=== PATIENT | female | born 1980 | race Caucasian/White ===

== ENCOUNTER 2020-09-18 07:11 | Emergency (ER) | payer BC ==
[2020-09-18] MEDS ORDERED: Aspirin 81 MG Tab.Chew PO ONE (07:46)
[2020-09-18] MEDS ORDERED: Morphine 2 MG/ML SYRINGE IVPUSH ONE (08:19)
[2020-09-18] MEDS ORDERED: Nitroglycerin 0.4 MG Tab.SL SL ONE (08:23)
[2020-09-18] MEDS ORDERED: Ondansetron 4 MG/2 ML SDV IVPUSH ONE (08:24)
--- NOTE | 2020-09-18 09:19 | CR ---
DATE OF SERVICE: 09/18/20 CLINICAL DATA: chest pain AP CHEST: The heart size is normal. The lungs are clear. No pneumothorax. No pleural effusions. No evidence of acute intrathoracic disease. [id number] [facility]
[2020-09-18] MEDS ORDERED: GI Cocktail Oral Solution 30 ML PO ONE (09:38)
[2020-09-18] MEDS ORDERED: Iopamidol 612 MG/ML 100 ML Bottle IV PRN (09:43)
[2020-09-18] MEDS ORDERED: Sodium Chloride 0.9% 50 ML SDV FLUSH SCH (09:45)
[2020-09-18] MEDS ORDERED: Nitroglycerin 2% Oint 30 GM Tube TOP ONE (09:56)
--- NOTE | 2020-09-18 11:44 | CT ---
DATE OF SERVICE: 09/18/2020 CLINICAL DATA: Chest Pain Enhanced chest CT: Multi slice acquisition through the chest with IV contrast was performed. No priors. No evidence of PE. No pneumothorax. No pleural effusions. No aortic aneurysm or dissection. There is a linear density in the right lung bases consistent with linear atelectasis or fibrosis. The lungs are otherwise clear. No areas of consolidation. The heart size is normal. No pericardial effusion. No hilar or mediastinal adenopathy. No osseous abnormalities. Impression: No acute intracranial abnormalities. MTDD
--- NOTE | 2020-09-18 13:17 | EDM.PDOC ---
ED HPI GENERAL MEDICAL PROBLEM - General Chief Complaint: Chest Pain Stated Complaint: CHEST/JAW PAIN,SOB Time Seen by Provider: 09/18/20 08:00 Source of Information: Reports: Patient History Limitations: Reports: No Limitations - History of Present Illness INITIAL COMMENTS - FREE TEXT/NARRATIVE: Patient is a 39 y/o female with PMHx of anxiety, who presents with substernal chest pain since yesterday at 0430. She describes the pain as constant, worsening, radiates to the shoulder blades and right neck. Associated shortness of breath and nausea. No cardiovascular or pulmonary disease. No family history. She took pepcid at home, which did not improve her symptoms. 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: Neurological History: Reports: Migraines Psychiatric History: Reports: Panic Attack, PTSD Endocrine/Metabolic History: Reports: Diabetes, Gestational - Past Surgical History HEENT Surgical History: Reports: Tonsillectomy Musculoskeletal Surgical History: Reports: Other (See Below) Other Musculoskeletal Surgeries/Procedures:: ankle surgery Social & Family History - Tobacco Use Second Hand Smoke Exposure: No - Recreational Drug Use Recreational Drug Use: No ED ROS GENERAL - Review of Systems Review Of Systems: See Below Constitutional: Reports: No Symptoms HEENT: Reports: No Symptoms Respiratory: Reports: Shortness of Breath Cardiovascular: Reports: Chest Pain GI/Abdominal: Reports: Nausea Musculoskeletal: Reports: No Symptoms Skin: Reports: No Symptoms Neurological: Reports: No Symptoms Psychiatric: Reports: No Symptoms ED EXAM, GENERAL - Physical Exam Exam: See Below Exam Limited By: No Limitations General Appearance: Alert, No Apparent Distress Head: Atraumatic, Normocephalic Neck: Normal Inspection, Supple, Non-Tender, Full Range of Motion, Other (no carotid bruits bilateral) Respiratory/Chest: No Respiratory Distress, Lungs Clear, Normal Breath Sounds, No Accessory Muscle Use, Chest Non-Tender Cardiovascular: Normal Peripheral Pulses, Regular Rate, Rhythm, No Edema, No Murmur, Other (cannot reproduce chest pain on exam) Peripheral Pulses: 2+: Carotid (L), Carotid (R), Radial (L), Radial (R) GI/Abdominal: Normal Bowel Sounds, Soft, Non-Tender, No Distention Extremities: Normal Inspection, Normal Range of Motion, Non-Tender, No Pedal Edema, Normal Capillary Refill Neurological: Alert, Oriented, CN II-XII Intact, Normal Cognition, Normal Gait, No Motor/Sensory Deficits Psychiatric: Normal Affect, Normal Mood Skin Exam: Warm, Dry, Intact, Normal Color, No Rash #1 Interpretation EKG Date: 09/18/20 Time: 08:35 Rhythm: NSR Rate (Beats/Min): 97 [place]: Normal P-Wave: Present QRS: Normal ST-T: Other (twave inversions in inferior leads) QT: Normal Comparison: NA - No Prior EKG Course - Vital Signs Text/Narrative:: Patient had labs and imaging, which were negative for dissection, PNA, pneumothorax, NSTEMI, or pulmonary embolism. GI cocktail given and aspirin without improvement. Nitro given with improvement. Patient with systolic of 100 (which is normal for her) and it went to 90 after nitro x 1. Nitro paste placed and patient's pain improved from 6/10 to 2/10. Discussed with cardio (dante enriquez) and Dr. Guerrero. Repeat troponin negative. Last Recorded V/S: Last Vital Signs Temp 36.6 C 09/18/20 11:19 Pulse 72 09/18/20 11:19 Resp 15 09/18/20 11:19 BP 104/67 09/18/20 11:19 Pulse Ox 98 09/18/20 11:19 - Orders/Labs/Meds Orders: Active Orders 24 hr Category Date Time Status C-REACTIVE PROTEIN [CHEM] Stat Lab 09/18/20 09:47 Results CKMB [CHEM] Stat Lab 09/18/20 09:47 Results Labs: Laboratory Tests 09/18/20 09/18/20 09/18/20 Range/Units 07:45 07:45 07:46 WBC (4.0-11.0) K/uL RBC (3.80-5.80) M/uL Hgb (11.5-16.5) g/dL Hct (37.0-47.0) % MCV (76-96) fL MCH (27.0-32.0) pg MCHC (31.0-35.0) g/dL RDW (11.0-16.0) % Plt Count (150-500) K/uL MPV (6.0-10.0) fL Neut % (Auto) (45.0-70.0) % Lymph % (Auto) (20.0-40.0) % [place] % (Auto) (3.0-10.0) % Eos % (Auto) (1.0-5.0) % Baso % (Auto) (0.0-0.5) % Neut # (Auto) (2.00-7.50) K/uL Lymph # (Auto) (1.50-4.00) K/uL [place] # (Auto) (0.20-0.80) K/uL Eos # (Auto) (0.04-0.40) K/uL Baso # (Auto) (0.02-0.10) K/uL D-Dimer, Quantitative < 100 (0-400) ng/mL Sodium 141 (136-145) mmol/L Potassium 3.6 (3.5-5.1) mmol/L Chloride 105 (98-107) mmol/L Carbon Dioxide 28.3 (21.0-32.0) mmol/L Anion Gap 11.3 (5.0-15.0) mmol/L BUN 13 (8-26) mg/dL Creatinine 0.98 (0.55-1.02) mg/dL Est Cr Clr Drug Dosing 76.43 mL/min Estimated GFR (MDRD) > 60 (>60) MLS/MIN BUN/Creatinine Ratio 13.3 (6-25) Glucose 108 H (74-100) mg/dL Calcium 8.4 L (8.5-10.1) mg/dL Total Bilirubin 1.0 (0.0-1.0) mg/dL AST 12 L (15-37) U/L ALT 22 (12-78) U/L Alkaline Phosphatase 42 L (46-116) U/L Troponin I < 0.017 (0.000-0.060) ng/mL C-Reactive Protein (0.0-3.0) mg/L Total Protein 6.8 (6.4-8.2) g/dL Albumin 3.6 (3.4-5.0) g/dL Globulin 3.2 (2.2-4.2) g/dL Albumin/Globulin Ratio 1.1 (0.8-2.0) SARS CoV-2 RNA Rapid KAMARI 09/18/20 09/18/20 09/18/20 Range/Units 08:00 08:39 09:45 WBC 4.7 (4.0-11.0) K/uL RBC 4.10 (3.80-5.80) M/uL Hgb 13.5 (11.5-16.5) g/dL Hct 39.4 (37.0-47.0) % MCV 96 (76-96) fL MCH 32.9 H (27.0-32.0) pg MCHC 34.3 (31.0-35.0) g/dL RDW 11.6 (11.0-16.0) % Plt Count 219 (150-500) K/uL MPV 9.5 (6.0-10.0) fL Neut % (Auto) 63.0 (45.0-70.0) % Lymph % (Auto) 26.9 (20.0-40.0) % [place] % (Auto) 8.8 (3.0-10.0) % Eos % (Auto) 0.9 L (1.0-5.0) % Baso % (Auto) 0.4 (0.0-0.5) % Neut # (Auto) 2.93 (2.00-7.50) K/uL Lymph # (Auto) 1.25 L (1.50-4.00) K/uL [place] # (Auto) 0.41 (0.20-0.80) K/uL Eos # (Auto) 0.04 (0.04-0.40) K/uL Baso # (Auto) 0.02 (0.02-0.10) K/uL D-Dimer, Quantitative (0-400) ng/mL Sodium (136-145) mmol/L Potassium (3.5-5.1) mmol/L Chloride (98-107) mmol/L Carbon Dioxide (21.0-32.0) mmol/L Anion Gap (5.0-15.0) mmol/L BUN (8-26) mg/dL Creatinine (0.55-1.02) mg/dL Est Cr Clr Drug Dosing mL/min Estimated GFR (MDRD) (>60) MLS/MIN BUN/Creatinine Ratio (6-25) Glucose (74-100) mg/dL Calcium (8.5-10.1) mg/dL Total Bilirubin (0.0-1.0) mg/dL AST (15-37) U/L ALT (12-78) U/L Alkaline Phosphatase (46-116) U/L Troponin I < 0.017 (0.000-0.060) ng/mL C-Reactive Protein (0.0-3.0) mg/L Total Protein (6.4-8.2) g/dL Albumin (3.4-5.0) g/dL Globulin (2.2-4.2) g/dL Albumin/Globulin Ratio (0.8-2.0) SARS CoV-2 RNA Rapid KAMARI Negative 09/18/20 Range/Units 09:47 WBC (4.0-11.0) K/uL RBC (3.80-5.80) M/uL Hgb (11.5-16.5) g/dL Hct (37.0-47.0) % MCV (76-96) fL MCH (27.0-32.0) pg MCHC (31.0-35.0) g/dL RDW (11.0-16.0) % Plt Count (150-500) K/uL MPV (6.0-10.0) fL Neut % (Auto) (45.0-70.0) % Lymph % (Auto) (20.0-40.0) % [place] % (Auto) (3.0-10.0) % Eos % (Auto) (1.0-5.0) % Baso % (Auto) (0.0-0.5) % Neut # (Auto) (2.00-7.50) K/uL Lymph # (Auto) (1.50-4.00) K/uL [place] # (Auto) (0.20-0.80) K/uL Eos # (Auto) (0.04-0.40) K/uL Baso # (Auto) (0.02-0.10) K/uL D-Dimer, Quantitative (0-400) ng/mL Sodium (136-145) mmol/L Potassium (3.5-5.1) mmol/L Chloride (98-107) mmol/L Carbon Dioxide (21.0-32.0) mmol/L Anion Gap (5.0-15.0) mmol/L BUN (8-26) mg/dL Creatinine (0.55-1.02) mg/dL Est Cr Clr Drug Dosing mL/min Estimated GFR (MDRD) (>60) MLS/MIN BUN/Creatinine Ratio (6-25) Glucose (74-100) mg/dL Calcium (8.5-10.1) mg/dL Total Bilirubin (0.0-1.0) mg/dL AST (15-37) U/L ALT (12-78) U/L Alkaline Phosphatase (46-116) U/L Troponin I (0.000-0.060) ng/mL C-Reactive Protein < 0.5 (0.0-3.0) mg/L Total Protein (6.4-8.2) g/dL Albumin (3.4-5.0) g/dL Globulin (2.2-4.2) g/dL Albumin/Globulin Ratio (0.8-2.0) SARS CoV-2 RNA Rapid KAMARI Meds: Medications Discontinued Medications Generic Name Dose Route Start Last Admin Trade Name Freq PRN Reason Stop Dose Admin Al Hydroxide/Mg Hydroxide 30 ml 09/18/20 09:38 09/18/20 09:38 Gi Cocktail PO 09/18/20 09:39 30 ml ONETIME ONE Administration Aspirin 324 mg 09/18/20 07:46 09/18/20 07:48 Aspirin PO 09/18/20 07:47 324 mg ONETIME ONE Administration Iopamidol 100 ml 09/18/20 09:43 09/18/20 11:10 Isovue-300 (61%) IV 09/19/20 09:44 100 ml . DIRECTED PRN Administration RADIOLOGY EXAM Morphine Sulfate 2 mg 09/18/20 08:19 09/18/20 08:54 Morphine IVPUSH 09/18/20 08:20 2 mg ONETIME ONE Administration Nitroglycerin 0.4 mg 09/18/20 08:23 09/18/20 08:24 Nitrostat SL 09/18/20 08:24 0.4 mg ONETIME ONE Administration Nitroglycerin 1 gm 09/18/20 09:56 09/18/20 10:03 Nitro-Bid 2% TOP 09/18/20 09:57 1 unit ONETIME ONE Administration Ondansetron HCl 4 mg 09/18/20 08:24 09/18/20 08:27 Zofran IVPUSH 09/18/20 08:25 4 mg ONETIME ONE Administration Sodium Chloride 50 ml 09/18/20 09:45 09/18/20 11:10 Normal Saline FLUSH 09/18/20 23:59 50 ml ONETIME LEBRON Administration Departure - Departure Time of Disposition: 13:00 Disposition: Home, Self-Care 01 Condition: Good Clinical Impression: Chest pain Qualifiers: Chest pain type: unspecified Qualified Code(s): R07.9 - Chest pain, unspecified Instructions: Nonspecific Chest Pain, Adult Referrals: PCP,None [Primary Care Provider] - Forms: ED Department Discharge Care Plan Goals: take 81 mg Aspirin daily. Nitro 0.4 mg by mouth up to three times , five min apart as needed for chest pain only if systolic b/p is greater then 90. Follow up appt with Dr. Santos Monday09/21/20 at 10 50 at [facility]. Will schedule you for outpatient Echo and stress test as soon as possible. Return to ER for persistent or worsening chest pain, dizziness, abd pain or shortness of breath . Stay hydrated. Sepsis Event Note (ED) - Evaluation Sepsis Screening Result: No Definite Risk - Focused Exam Vital Signs: Vital Signs Temp Pulse Resp BP BP Pulse Ox 09/18/20 11:19 36.6 C 72 15 104/67 98 09/18/20 10:43 36.6 C 78 18 101/69 100 09/18/20 10:21 36.6 C 72 10 L 104/67 100 09/18/20 09:47 83 13 90/68 99 09/18/20 09:11 36.6 C 71 10 L 93/68 97 09/18/20 08:36 89 94/60 98 09/18/20 08:24 101/81 09/18/20 08:07 36.6 C 92 18 101/81 98 09/18/20 07:29 36.8 C 102 H 20 102/81 100 - My Orders Last 24 Hours: My Active Orders 09/18/20 09:47 C-REACTIVE PROTEIN [CHEM] Stat CKMB [CHEM] Stat - Assessment/Plan Last 24 Hours: My Active Orders 09/18/20 09:47 C-REACTIVE PROTEIN [CHEM] Stat CKMB [CHEM] Stat
== END 2020-09-18 12:30 | disposition home or self-care (01) ==
LOC: LB.ED 07:11
DX: R07.9 Chest pain, unspecified (principal); Z20.828 Contact with and (suspected) exposure to other viral communicable diseases; Z88.1 Allergy status to other antibiotic agents; Z79.899 Other long term (current) drug therapy
CPT/HCPCS: 36415; 71045; 71260; 80053; 82553; 84484; 85025; 85379; 86140; 93005; 96374; 96375; 99285-25; A9270-GY; J2270; J2405; Q9967; U0002

== ENCOUNTER 2020-12-31 09:37 | Emergency (ER) | payer OTHER, BC ==
--- NOTE | 2020-12-31 10:06 | EDM.PDOC ---
ED HPI GENERAL MEDICAL PROBLEM - General Chief Complaint: Upper Extremity Injury/Pain Stated Complaint: SMASHED HAND Time Seen by Provider: 12/31/20 09:55 Source of Information: Reports: Patient History Limitations: Reports: No Limitations - History of Present Illness INITIAL COMMENTS - FREE TEXT/NARRATIVE: presented to the ER with a c/o right hand pain due to a smashing injury between the edge of a door and a heavy machinery. Patient was trying to move some machine around at work today when this occurred. 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: Neurological History: Reports: Migraines Psychiatric History: Reports: Panic Attack, PTSD Endocrine/Metabolic History: Reports: Diabetes, Gestational - Past Surgical History HEENT Surgical History: Reports: Tonsillectomy Musculoskeletal Surgical History: Reports: Other (See Below) Other Musculoskeletal Surgeries/Procedures:: ankle surgery Social & Family History - Caffeine Use Caffeine Use: Reports: Coffee, Soda - Recreational Drug Use Recreational Drug Use: No Review of Systems - Review of Systems Review Of Systems: See Below Constitutional: Reports: No Symptoms Eyes: Reports: No Symptoms Ears: Reports: No Symptoms Nose: Reports: No Symptoms Mouth/Throat: Reports: No Symptoms Respiratory: Reports: No Symptoms Cardiovascular: Reports: No Symptoms ED EXAM, GENERAL - Physical Exam Exam: See Below Exam Limited By: No Limitations General Appearance: Alert, WD/WN, No Apparent Distress Eye Exam: Bilateral Eye: PERRL Head: Atraumatic Respiratory/Chest: No Respiratory Distress, No Accessory Muscle Use Cardiovascular: Normal Peripheral Pulses Extremities: Other (right hand: mild swelling and bruise over the base of the 5th digit / palmar side. Able to move fingers. no deformity. ) Course - Vital Signs Last Recorded V/S: Last Vital Signs Temp 35.5 C L 12/31/20 09:45 Pulse 81 12/31/20 09:45 Resp 16 12/31/20 09:45 BP 101/68 12/31/20 09:45 Pulse Ox 99 12/31/20 09:45 - Orders/Labs/Meds Orders: Active Orders 24 hr Category Date Time Status Hand Comp Min 3V Rt [CR] Stat Exams 12/31/20 09:44 Ordered - Radiology Interpretation Free Text/Narrative:: xrays - Re-Assessments/Exams Free Text/Narrative Re-Assessment/Exam: 12/31/20 10:16 xrays were ordered of Right hand - no fracture or dislocation seen. Departure - Departure Time of Disposition: 10:17 Disposition: Home, Self-Care 01 Condition: Good Clinical Impression: Contusion of right hand, initial encounter - Discharge Information *PRESCRIPTION DRUG MONITORING PROGRAM REVIEWED*: No *COPY OF PRESCRIPTION DRUG MONITORING REPORT IN PATIENT NIURKA: No Referrals: PCP,None [Primary Care Provider] - Forms: ED Department Discharge Sepsis Event Note (ED) - Evaluation Sepsis Screening Result: No Definite Risk - Focused Exam Vital Signs: Vital Signs Temp Pulse Resp BP Pulse Ox 12/31/20 09:45 35.5 C L 81 16 101/68 99 - Problem List & Annotations (1) Contusion of right hand, initial encounter SNOMED Code(s): 8549617 Code(s): S60.221A - CONTUSION OF RIGHT HAND, INITIAL ENCOUNTER Status: Acute Priority: Low Current Visit: Yes - My Orders Last 24 Hours: My Active Orders 12/31/20 09:44 Hand Comp Min 3V Rt [CR] Stat - Assessment/Plan Last 24 Hours: My Active Orders 12/31/20 09:44 Hand Comp Min 3V Rt [CR] Stat Plan: - please ice the affected area - take Tylenol or ibuprofen for pain as needed - recommend to rest the right hand for the next 48-72 hrs - follow up with the PCP as needed
--- NOTE | 2020-12-31 13:31 | CR ---
Date of Service: 12/31/20 Clinical Data: crush injury RIGHT HAND: No priors. No acute fracture or dislocation. No lytic or blastic bone lesions. No significant arthritic changes. [id number] [facility]
== END 2020-12-31 10:25 | disposition home or self-care (01) ==
LOC: LB.ED 09:37
DX: S60.221A Contusion of right hand, initial encounter (principal); Z88.0 Allergy status to penicillin; W23.0XXA Caught, crushed, jammed, or pinched between moving objects, initial encounter; Y92.89 Other specified places as the place of occurrence of the external cause; Y99.0 Civilian activity done for income or pay
CPT/HCPCS: 73130-RT; 99282; 99283

== ENCOUNTER 2021-08-19 15:06 | Emergency (ER) | payer OTHER, BC ==
[2021-08-19] MEDS ORDERED: Ketorolac 60 MG/2 ML SDV IM ONE (15:33)
[2021-08-19] MEDS ORDERED: Ketorolac 30 MG/ML SDV ONE (15:42)
--- NOTE | 2021-08-19 16:58 | CT ---
DATE OF SERVICE: 08/19/2021 CLINICAL DATA: CVA TENDERNESS Unenhanced abdomen and pelvic CT: Multislice acquisition without IV or oral contrast was performed. No priors. There are minimal atelectatic changes in the right lung base posteriorly. The lung bases are otherwise clear. The heart size is normal. The liver is normal size. It does have mildly increased attenuation with respect to the spleen suggesting hemochromatosis. No focal hepatic lesions. The gallbladder is contracted. No calcified gallstones. The spleen appears normal. The pancreas appears normal. The right and left adrenals appear normal. No nephrocalcinosis or nephrolithiasis. No hydronephrosis or hydroureter. The bladder is partially fluid filled. It appears normal. There is a IUD within the uterus. The uterus appears mildly prominent in size. There are low-density lesions in both ovaries consistent with bilateral ovarian cysts. No evidence of appendicitis. There is a large amount of stool present throughout the colon. No free air. No free fluid. No dilated loops of bowel. No adenopathy. No other significant findings MTDD
[2021-08-19] MEDS ORDERED: Cyclobenzaprine 10 MG Tab ONE (17:00)
--- NOTE | 2021-08-19 17:20 | EDM.PDOC ---
ED HPI GENERAL MEDICAL PROBLEM - General Chief Complaint: Flank Pain Stated Complaint: POSSIBLE KIDNEY STONE Time Seen by Provider: 08/19/21 15:15 Source of Information: Reports: Patient History Limitations: Reports: No Limitations - History of Present Illness INITIAL COMMENTS - FREE TEXT/NARRATIVE: 40-year-old female presents to the ED complaining of bilateral flank pain. La sommer had acute onset of flank pain Monday night approximately 1030 patient awoke with the pain pain has gradually increased throughout the week. Patient says heating pack and Tylenol do help a little bit with the pain it is a generalized constant pain. She rates it as 6/10 on the pain scale. Positive for: Nausea, change to smell and color of urine dark/cloudy that then progressed to more clear. Negative for: Current chest pain, shortness of breath, syncope/near syncope, trauma, vomiting, constipation/diarrhea, black tarry stool, blood on stool, no swollen joints, no rashes, no fever no diaphoresis. Bilateral Flank Pain Score (Numeric/FACES): 6 - Related Data Allergies Allergy/AdvReac Type Severity Reaction Status Date / Time amoxicillin Allergy Hives Verified 08/19/21 15:20 Past Medical History Cardiovascular History: Reports: Other (See Below) Other Cardiovascular History: chest pain Genitourinary History: Reports: Renal Calculus [employer] History: Reports: Neurological History: Reports: Migraines Psychiatric History: Reports: Panic Attack, PTSD Endocrine/Metabolic History: Reports: Diabetes, Gestational - Past Surgical History HEENT Surgical History: Reports: Tonsillectomy Musculoskeletal Surgical History: Reports: Other (See Below) Other Musculoskeletal Surgeries/Procedures:: ankle surgery Social & Family History - Caffeine Use Caffeine Use: Reports: Coffee, Soda - Recreational Drug Use Recreational Drug Use: No ED ROS GENERAL - Review of Systems Review Of Systems: See Below Constitutional: Reports: No Symptoms HEENT: Reports: No Symptoms Respiratory: Reports: No Symptoms Cardiovascular: Reports: Chest Pain (None presently this was a previous complaint being worked up by cardiology), Other (Recent Holter monitor for possible QT elongation) Endocrine: Reports: No Symptoms GI/Abdominal: Reports: Nausea. Denies: Anorexia, Black Stool, Bloody Stool, Constipation, Diarrhea, Decreased Appetite, Distension, Melena, Vomiting : Reports: Other (See previous) Musculoskeletal: Reports: No Symptoms Skin: Reports: No Symptoms Neurological: Reports: No Symptoms Psychiatric: Reports: No Symptoms ED EXAM, GI/ABD - Physical Exam Exam: See Below Text/Narrative:: 40-year-old female presents to ED found in bay 2. Patient semifowler position on stretcher. No apparent distress, alert and oriented through 3 GCS 4 5 6 skin pink warm and dry no obvious trauma noted speaking in full sentences Exam Limited By: No Limitations General Appearance: Alert, WD/WN, No Apparent Distress Eyes: Bilateral: EOMI Nose: Normal Inspection, Normal Mucosa, No Blood Throat/Mouth: Normal Inspection, Normal Lips, Normal Teeth, Normal Gums, Normal Oropharynx, Normal Voice, No Airway Compromise Head: Atraumatic, Normocephalic Respiratory/Chest: No Respiratory Distress, Lungs Clear, Normal Breath Sounds, No Accessory Muscle Use, Chest Non-Tender Cardiovascular: Normal Peripheral Pulses, Regular Rate, Rhythm, No Edema, No Gallop, No JVD, No Murmur, No Rub GI/Abdominal Exam: Normal Bowel Sounds, Soft, Non-Tender, No Organomegaly, No Distention, No Abnormal Bruit, No Mass, Pelvis Stable Back Exam: CVA Tenderness (R), CVA Tenderness (L) (Left greater than right) Extremities: Normal Inspection, Normal Range of Motion, Non-Tender, Normal Capillary Refill, No Pedal Edema Neurological: Alert, Oriented, Normal Cognition, Normal Gait Psychiatric: Normal Affect, Normal Mood Skin Exam: Warm, Dry, Intact, Normal Color, No Rash Course - Vital Signs Last Recorded V/S: Last Vital Signs Temp 98 F 08/19/21 15:19 Pulse 100 08/19/21 15:19 Resp 18 08/19/21 15:19 BP 100/79 08/19/21 15:19 Pulse Ox 96 08/19/21 15:19 - Orders/Labs/Meds Labs: Laboratory Tests 08/19/21 08/19/21 08/19/21 Range/Units 15: 15:59 15:59 WBC 6.1 (4.0-11.0) K/uL RBC 3.99 (3.80-5.80) M/uL Hgb 12.8 (11.5-16.5) g/dL Hct 38.0 (37.0-47.0) % MCV 95 (76-96) fL MCH 32.1 H (27.0-32.0) pg MCHC 33.7 (31.0-35.0) g/dL RDW 11.9 (11.0-16.0) % Plt Count 253 (150-500) K/uL MPV 9.1 (6.0-10.0) fL Neut % (Auto) 59.1 (45.0-70.0) % Lymph % (Auto) 30.1 (20.0-40.0) % Cassia % (Auto) 9.5 (3.0-10.0) % Eos % (Auto) 1.0 (1.0-5.0) % Baso % (Auto) 0.3 (0.0-0.5) % Neut # (Auto) 3.59 (2.00-7.50) K/uL Lymph # (Auto) 1.83 (1.50-4.00) K/uL Cassia # (Auto) 0.58 (0.20-0.80) K/uL Eos # (Auto) 0.06 (0.04-0.40) K/uL Baso # (Auto) 0.02 (0.02-0.10) K/uL Sodium 140 (136-145) mmol/L Potassium 4.1 D (3.5-5.1) mmol/L Chloride 106 (98-107) mmol/L Carbon Dioxide 27.3 (21.0-32.0) mmol/L Anion Gap 10.8 (5.0-15.0) mmol/L BUN 10 D (8-26) mg/dL Creatinine 0.75 (0.55-1.02) mg/dL Est Cr Clr Drug Dosing 98.90 mL/min Estimated GFR (MDRD) > 60 (>60) MLS/MIN BUN/Creatinine Ratio 13.3 (6-25) Glucose 116 H D (74-100) mg/dL Calcium 8.6 (8.5-10.1) mg/dL Urine Color Yellow Urine Appearance Clear (CLEAR) Urine pH 5.5 (5.0-8.0) Ur Specific [place] 1.020 (1.003-1.030) Urine Protein Negative (NEGATIVE) mg/dL Urine Glucose (UA) Negative (NEGATIVE) mg/dL Urine Ketones Negative (NEGATIVE) mg/dL Urine Occult Blood Negative (NEGATIVE) Urine Nitrite Negative (NEGATIVE) Urine Bilirubin Negative (NEGATIVE) Urine Urobilinogen 0.2 (0.2-1.0) E.U./dL Ur Leukocyte Esterase Negative (NEGATIVE) Meds: Medications Discontinued Medications Generic Name Dose Route Start Last Admin Trade Name Isma PRN Reason Stop Dose Admin Ketorolac Tromethamine 30 mg 08/19/21 15:33 08/19/21 15:35 Ketorolac 60 Mg/2 Ml Sdv IM 08/19/21 15:34 30 mg ONETIME ONE Administration Ketorolac Tromethamine Confirm 08/19/21 15:42 08/19/21 15:36 Ketorolac 30 Mg/Ml Sdv Administered 08/19/21 15:43 Not Given Dose 30 mg .ROUTE .STK-MED ONE Departure - Departure Time of Disposition: 17:20 Disposition: Home, Self-Care 01 Condition: Good Clinical Impression: Flank pain - Discharge Information *PRESCRIPTION DRUG MONITORING PROGRAM REVIEWED*: No *COPY OF PRESCRIPTION DRUG MONITORING REPORT IN PATIENT NIURKA: No Referrals: Shaq Santos MD [Primary Care Provider] - Forms: ED Department Discharge Care Plan Goals: Flexeril one tab three times daily as needed. Take one capful of mirilax as needed . Follow up with your PCP re possible hemochromatosis Sepsis Event Note (ED) - Evaluation Sepsis Screening Result: No Definite Risk - Focused Exam Vital Signs: Vital Signs Temp Pulse Resp BP Pulse Ox 08/19/21 15:19 98 F 100 18 100/79 96 - Assessment/Plan Assessment:: Patient was assessed for: Bilateral flank pain/back pain, patient was worked up for UTI, pyelonephritis, nephrolithiasis, hydronephrosis. 1. Bilateral CVA tenderness 2. Possible constipation UA was negative for any signs of infection, or blood. CBC showed no signs of infection. CT of abdomen and pelvis showed no acute pathology. Patient was made aware of possibility that she has hemochromatosis and has been suggested to follow-up with primary care provider for same. Plan: Based on negative work-up for previous mentioned conditions. Plan is to address patient's pain with Tylenol/ibuprofen/aspirin patient's choice use as directed on the site of bottle, muscle relaxer Flexeril to help patient get some sleep, patient to follow-up with primary care provider. Return to ED if develops fever, increase in pain, or other new symptoms that are troubling. Patient was discharged in stable condition
== END 2021-08-19 17:12 | disposition home or self-care (01) ==
LOC: LB.ED 15:06
DX: R10.9 Unspecified abdominal pain (principal); Z88.0 Allergy status to penicillin
CPT/HCPCS: 36415; 74176; 80048; 81003; 85025; 96372; 99284; A9270; J1885